=== PATIENT | female | born 1995 | race Asian ===

== ENCOUNTER 2023-10-30 01:29 | Inpatient (IN) | payer MEDICAID ==
[~2023-10-30] VITALS: Ht 165.1 cm; Wt 90.7 kg
[2023-10-30 03:38] LABS: BASOPHILS % 0.1 % (0.0-2.0); EOSINOPHILS % 0.3 % (0.0-5.0); HEMATOCRIT. 37.3 % (36.0-48.0); HEMOGLOBIN. 12.2 g/dL (12.0-16.0); LYMPHOCYTES % 15.8 % (20.0-50.0); MEAN CORPUSCULAR HEMOGLOBIN 29.6 pg (28.0-32.0); MEAN CORPUSCULAR HGB CONC 32.8 g/dL (31.0-37.0); MEAN CORPUSCULAR VOLUME 90.4 fL (81.0-99.0); MEAN PLATELET VOLUME 7.6 fl (7.4-10.4); MONOCYTES % 3.5 % (2.0-8.0); NEUTROPHILS % 80.3 % (40.0-76.0); PLATELET 311 x1000/uL (130-400); RED BLOOD CELL COUNT 4.13 mill/uL (4.2-5.4); WHITE BLOOD COUNT 18.6 x1000/uL (4.5-11.0)
[2023-10-30] MEDS: SODIUM CHLORIDE 0.9% 1,000 ML IV ONE (03:40)
[2023-10-30 03:55] LABS: LACTIC ACID 2.3 mmol/L (0.4-2.0)
[2023-10-30 03:58] LABS: ALANINE AMINOTRANSFERASE 23 IU/L (10-49); ALBUMIN 4.5 g/dL (3.2-4.8); ASPARTATE AMINOTRANSFERASE 20 IU/L (<34); B-HCG QUANTITATIVE 76 mIU/mL (<3); BILIRUBIN TOTAL 0.7 mg/dL (0.1-1.0); CARBON DIOXIDE 25 mEq/L (21-32); CHLORIDE 105 mEq/L (98-107); CREATININE 0.7 mg/dL (0.6-1.0); GLUCOSE 138 mg/dL (70-105); POTASSIUM 4.2 mEq/L (3.5-5.1); PROTEIN TOTAL 7.3 g/dL (6.0-8.3); SODIUM 138 mEq/L (136-145); UREA NITROGEN BLOOD 10 mg/dL (9-23)
[2023-10-30 06:15] LABS: CLARITY URINE CLEAR (CLEAR); COLOR URINE YELLOW (YELLOW); GLUCOSE URINE NEGATIVE (NEGATIVE); KETONES URINE NEGATIVE (NEGATIVE); LEUKOCYTE ESTERASE URINE NEGATIVE (NEGATIVE); NITRITE URINE NEGATIVE (NEGATIVE); OCCULT BLOOD URINE 3+ (NEGATIVE); PROTEIN URINE NEGATIVE (NEGATIVE); SPECIFIC GRAVITY URINE 1.018 (1.005-1.030); UROBILINOGEN URINE 0.2 E.U./dL (0.2-1.0)
[2023-10-30 06:43] LABS: BACTERIA URINE TRACE; SQUAMOUS EPITHELIAL CELL URINE FEW /lpf (RARE/1+)
[2023-10-30 09:53] VITALS: BP 120/65; PULSE 60; RESP 20; TEMP 98
[2023-10-30] MEDS ORDERED: NALOXONE HCL 0.4MG/ML VIAL IV PRN (10:45)
[2023-10-30] MEDS: MORPHINE SULFATE 2 MG/ML CPJ (NOT FOR IM USE) IV PRN (10:58)
[2023-10-30] MEDS: LACTATED RINGERS 1,000 ML IV SCH (11:27)
[2023-10-30 12:00] VITALS: BP 102/57; PULSE 75; RESP 16; TEMP 97.4
[2023-10-30 16:00] VITALS: BP 114/64; PULSE 73; RESP 20; TEMP 97.7
[2023-10-30 16:33] LABS: CLARITY URINE CLEAR (CLEAR); COLOR URINE YELLOW (YELLOW); GLUCOSE URINE NEGATIVE (NEGATIVE); KETONES URINE NEGATIVE (NEGATIVE); LEUKOCYTE ESTERASE URINE NEGATIVE (NEGATIVE); NITRITE URINE NEGATIVE (NEGATIVE); OCCULT BLOOD URINE 3+ (NEGATIVE); PH URINE 6.5 (4.5-8.0); PROTEIN URINE NEGATIVE (NEGATIVE); SPECIFIC GRAVITY URINE 1.011 (1.005-1.030); UROBILINOGEN URINE 0.2 E.U./dL (0.2-1.0)
[2023-10-30 16:45] LABS: *AMPHETAMINES SCREEN URINE NEGATIVE (NEGATIVE); *BARBITURATES SCREEN URINE NEGATIVE (NEGATIVE); *BENZODIAZEPINES SCREEN URINE NEGATIVE (NEGATIVE); *COCAINE SCREEN URINE NEGATIVE (NEGATIVE); CANNABINOID URINE SCREEN NEGATIVE (NEGATIVE); ECSTASY MDMA SCREEN URINE NEGATIVE (NEGATIVE); METHADONE URINE SCREEN Neg (NEGATIVE); OPIATES URINE SCREEN PRESUMPTIVE POSITIVE (NEGATIVE); PHENCYCLIDINE URINE SCREEN NEGATIVE (NEGATIVE)
[2023-10-30 17:20] LABS: BACTERIA URINE TRACE; SQUAMOUS EPITHELIAL CELL URINE 1+ /lpf (RARE/1+); WBC URINE 0-2 /hpf (0-2)
[2023-10-30 18:16] LABS: BASOPHILS % 0.3 % (0.0-2.0); EOSINOPHILS % 0.9 % (0.0-5.0); HEMATOCRIT. 32.7 % (36.0-48.0); HEMOGLOBIN. 10.8 g/dL (12.0-16.0); LYMPHOCYTES % 22.8 % (20.0-50.0); MONOCYTES % 5.4 % (2.0-8.0); NEUTROPHILS % 70.6 % (40.0-76.0); PLATELET 257 x1000/uL (130-400); RED CELL DISTRIBUTION WIDTH 13.8 % (11.6-14.6); WHITE BLOOD COUNT 13.5 x1000/uL (4.5-11.0)
[2023-10-30 18:27] LABS: PARTIAL THROMBOPLASTIN TIME 25.1 sec (23.4-31.0); PROTHROMBIN TIME 10.7 sec (9.6-11.0)
[2023-10-30 18:44] LABS: HEPATITIS B SURFACE ANTIGEN NEGATIVE (Negative)
[2023-10-30 20:00] VITALS: BP 125/74; PULSE 86; RESP 18; TEMP 98.8
[2023-10-31] VITALS: BP 121/78; PULSE 94; RESP 18; TEMP 97.8
[2023-10-31 04:00] VITALS: BP 115/68; PULSE 80; RESP 18; TEMP 98.8
[2023-10-31 08:00] VITALS: BP 115/63; PULSE 78; RESP 20; TEMP 98.1
[2023-10-31 12:00] VITALS: BP 109/60; PULSE 77; RESP 19; TEMP 98.2
[2023-10-31 16:00] VITALS: BP 117/65; PULSE 84; RESP 21; TEMP 98.1
[2023-10-31 20:00] VITALS: BP 107/64; PULSE 82; RESP 16; TEMP 96.7
[2023-11-01 04:00] VITALS: BP 106/52; PULSE 86; RESP 16; TEMP 97.1
[2023-11-01 08:00] VITALS: BP 119/76; PULSE 85; RESP 20; TEMP 98.1
[2023-11-01 12:00] VITALS: BP 119/61; PULSE 76; RESP 19; TEMP 98.2
[2023-11-01 16:00] VITALS: BP 123/70; PULSE 82; RESP 19; TEMP 98.1
[2023-11-01 20:00] VITALS: BP 110/69; PULSE 80; RESP 18; TEMP 98.2
[2023-11-02] VITALS: BP 118/59; PULSE 80; RESP 17; TEMP 97.9
[2023-11-02 04:00] VITALS: BP 101/58; PULSE 77; RESP 17; TEMP 97
[2023-11-02 08:00] VITALS: BP 116/71; PULSE 82; RESP 20; TEMP 98.1
[2023-11-02 12:00] VITALS: BP 118/70; PULSE 72; RESP 20; TEMP 98.1
[2023-11-02 16:00] VITALS: BP 116/72; PULSE 72; RESP 20; TEMP 98.1
[2023-11-02 20:00] VITALS: BP 127/85; PULSE 75; RESP 20; TEMP 98.4
[2023-11-02] MEDS: METHOTREXATE SODIUM/PF 50 MG/2 ML VIAL IM NR (23:10)
[2023-11-03] VITALS: BP 110/71; PULSE 90; RESP 20; TEMP 97.9
[2023-11-03 04:00] VITALS: BP 107/61; PULSE 73; RESP 20; TEMP 97.9
[2023-11-03 08:00] VITALS: BP 103/60; PULSE 63; RESP 19; TEMP 97
[2023-11-03 12:00] VITALS: BP 110/61; PULSE 71; RESP 19; TEMP 97
[2023-11-03] MEDS ORDERED: T3 PO (14:57)
[2023-11-03 15:16] VITALS: BP 110/61; PULSE 71; TEMP 97; O2SAT 98
== END 2023-11-03 15:55 | disposition home or self-care (01) | DRG 564 ==
LOC: EDBD 01:29 → ER 01:29 → 6EST 05:30
PROVIDERS: ADMIT Obstetrics & Gynecology; ATTEND Obstetrics & Gynecology
DX: O02.1 Missed abortion (principal); O00.80 Other ectopic pregnancy without intrauterine pregnancy; Z3A.01 Less than 8 weeks gestation of pregnancy
CPT/HCPCS: 36415; 76801; 80053; 80305; 81003; 83605; 84702; 85025; 86592; 86850; 86900; 87340; 99285; J2270; J7030; J7120; J9260